=== PATIENT | male | born 1945 | race Caucasian/White ===

== ENCOUNTER 2022-03-17 08:00 | Outpatient (CLI) | payer MEDICARE, BC, SELFPAY | END 2022-03-17 08:01 | disposition home or self-care (01) | LOC: AMB 03-22 11:54 | PROVIDERS: PCP Internal Medicine; Visit Provider Family Medicine | DX: R53.1 Weakness (principal) ==

== ENCOUNTER 2024-04-21 09:28 | Outpatient (CLI) | payer MEDICARE, BC, SELFPAY | END 2024-04-21 09:29 | disposition home or self-care (01) | LOC: NFLDREF 04-22 11:26 | PROVIDERS: PCP Internal Medicine; Referring Provider Internal Medicine; Visit Provider Family Medicine | DX: N30.01 Acute cystitis with hematuria (principal) | CPT/HCPCS: 87086 ==